=== PATIENT | female | born 1995 | race Caucasian/White ===

== ENCOUNTER 2017-05-24 20:22 | Emergency (ER) | payer SELFPAY ==
[~2017-05-24] VITALS: Ht 162.6 cm; Wt 70.3 kg
[~2017-05-24 20:22] MED LIST: AMPH30TA9 PO; CEP125L PO; CEPH-13 PO; CEPH500T7 PO; OMEP-125 PO; OXYC-865 PO; PHEN200T32 PO; SUCR1TAB51 PO; [UNRECOGNIZED DRUG - REMARK]
--- NOTE | 2017-05-24 20:46 | ER Report ---
History and Physical Time Seen By MD: 20:45 HPI/ROS CHIEF COMPLAINT: Burning epigastric region HISTORY OF PRESENT ILLNESS: 21-year-old female patient presents to emergency room with complaint of burning in the epigastric region. Patient states that this is been going on since yesterday. She states that is significantly worse with eating and drinking. She states that nothing seems to make the pain better. She states that she has taken some [id number] cough and cold medicine for a cold patient has. She states that has not helped with his burning in her chest. She denies having any fevers, chills, vomiting or diarrhea. Patient has been nauseated. Patient states that she is having significant amounts of pain and that was the reason for coming in tonight. REVIEW OF SYSTEMS: Respiratory: No cough, no dyspnea. Cardiovascular: No chest pain, no palpitations. Gastrointestinal: As noted above Musculoskeletal: No back pain. Allergies: Coded Allergies: No Known Drug Allergies (Verified , 05/24/17) Home Meds No Active Prescriptions or Reported Meds Past Medical/Surgical History Patient has a past medical history of miscarriage, frequent UTI. Patient has a surgical history of urethral surgery. Reviewed Nurses Notes: Yes Hx Smoking: Yes (1ppd) Smoking Status: Current: Every Day Smoker Hx Substance Use Disorder: No Hx Alcohol Use: No Constitutional Vital Sign - Last 24 Hours 05/24/17 05/24/17 20:35 22:42 Temp 98.3 98.3 Pulse 83 88 Resp 18 20 B/P (MAP) 107/60 126/79 (95) Pulse Ox 96 96 O2 Delivery Room Air Physical Exam General Appearance: The patient is alert, has no immediate need for airway protection and no current signs of toxicity. ENT: Tympanic membranes are pearly-garcia, auditory canals are patent, mucous membranes are moist. Respiratory: Chest is non tender, lungs are clear to auscultation. Cardiac: regular rate and rhythm Gastrointestinal: Abdomen is soft and tender in the epigastric region, no masses , bowel sounds normal. Musculoskeletal: Neck: Neck is supple and non tender. Extremities have full range of motion and are non tender. Skin: No rashes or lesions. DIFFERENTIAL DIAGNOSIS: After history and physical exam differential diagnosis was considered for abdominal pain including but not limited to appendicitis, cholecystitis, gastritis and urinary tract infection. Medical Decision Making Data Points Result Diagram: 05/24/17211805/24/172118 Laboratory Hematology Test 05/24/17 21:19 Red Blood Count 5.16 M/uL (4.17-5.56) Mean Corpuscular Volume 88.2 fL (80.0-96.0) Mean Corpuscular Hemoglobin 30.8 pg (26.0-33.0) Mean Corpuscular Hemoglobin Concent 34.9 g/dL (32.0-36.0) Red Cell Distribution Width 13.4 % (11.5-14.5) Mean Platelet Volume 7.2 fL (7.2-11.1) Neutrophils (%) (Auto) 45.5 % (39.4-72.5) Lymphocytes (%) (Auto) 39.8 % (17.6-49.6) Monocytes (%) (Auto) 12.2 % (4.1-12.4) Eosinophils (%) (Auto) 2.0 % (0.4-6.7) Basophils (%) (Auto) 0.5 % (0.3-1.4) Nucleated RBC Relative Count (auto) 0.0 /100WBC Neutrophils # (Auto) 2.1 K/uL (2.0-7.4) Lymphocytes # (Auto) 1.8 K/uL (1.3-3.6) Monocytes # (Auto) 0.6 K/uL (0.3-1.0) Eosinophils # (Auto) 0.1 K/uL (0.0-0.5) Basophils # (Auto) 0.0 K/uL (0.0-0.1) Nucleated RBC Absolute Count (auto) 0.00 K/uL Sodium Level 138 mmol/L (137-145) Potassium Level 3.4 mmol/L (3.5-5.0) Chloride Level 103 mmol/L (98-107) Carbon Dioxide Level 23 mmol/L (22-31) Blood Urea Nitrogen 8 mg/dl (7-18) Creatinine 0.60 mg/dl (0.52-1.04) Glomerular Filtration Rate Calc > 60.0 Random Glucose 83 mg/dl (75-110) Calcium Level 8.8 mg/dl (8.4-10.2) Total Bilirubin 0.2 mg/dl (0.2-1.3) Aspartate Amino Transf (AST/SGOT) 23 U/L (0-35) Alanine Aminotransferase (ALT/SGPT) 30 U/L (0-56) Alkaline Phosphatase 74 U/L (0-126) Total Protein 7.0 gm/dl (6.3-8.2) Albumin 3.9 g/dl (3.5-5.0) Amylase Level 54 U/L (0-110) Lipase 92 U/L (23-300) Human Chorionic Gonadotropin, Qual Positive (NEGATIVE) Chemistry Test 05/24/17 21:19 White Blood Count 4.6 k/uL (4.5-11.0) Red Blood Count 5.16 M/uL (4.17-5.56) Hemoglobin 15.9 g/dL (12.0-16.0) Hematocrit 45.5 % (34.0-47.0) Mean Corpuscular Volume 88.2 fL (80.0-96.0) Mean Corpuscular Hemoglobin 30.8 pg (26.0-33.0) Mean Corpuscular Hemoglobin Concent 34.9 g/dL (32.0-36.0) Red Cell Distribution Width 13.4 % (11.5-14.5) Platelet Count 180 K/uL (150-450) Mean Platelet Volume 7.2 fL (7.2-11.1) Neutrophils (%) (Auto) 45.5 % (39.4-72.5) Lymphocytes (%) (Auto) 39.8 % (17.6-49.6) Monocytes (%) (Auto) 12.2 % (4.1-12.4) Eosinophils (%) (Auto) 2.0 % (0.4-6.7) Basophils (%) (Auto) 0.5 % (0.3-1.4) Nucleated RBC Relative Count (auto) 0.0 /100WBC Neutrophils # (Auto) 2.1 K/uL (2.0-7.4) Lymphocytes # (Auto) 1.8 K/uL (1.3-3.6) Monocytes # (Auto) 0.6 K/uL (0.3-1.0) Eosinophils # (Auto) 0.1 K/uL (0.0-0.5) Basophils # (Auto) 0.0 K/uL (0.0-0.1) Nucleated RBC Absolute Count (auto) 0.00 K/uL Glomerular Filtration Rate Calc > 60.0 Calcium Level 8.8 mg/dl (8.4-10.2) Total Bilirubin 0.2 mg/dl (0.2-1.3) Aspartate Amino Transf (AST/SGOT) 23 U/L (0-35) Alanine Aminotransferase (ALT/SGPT) 30 U/L (0-56) Alkaline Phosphatase 74 U/L (0-126) Total Protein 7.0 gm/dl (6.3-8.2) Albumin 3.9 g/dl (3.5-5.0) Amylase Level 54 U/L (0-110) Lipase 92 U/L (23-300) Human Chorionic Gonadotropin, Qual Positive (NEGATIVE) ED Course/Re-evaluation ED Course Patient was admitted to an exam room, history of physical or obtained. Differential diagnoses were considered. On examination patient had epigastric abdominal pain. A CBC, CMP, amylase, lipase, hCG were done. I did order a acute abdominal x-ray. The labs were unremarkable except the patient did have a positive hCG. At that time I did cancel the x-ray. I discussed the findings with patient. We did treat her with a Magic mouthwash. She did have improvement in her chest pain. I believe that she is having gastritis secondary to being as well as possibly alcohol consumption last night. I discussed with the patient that she needs to follow-up with [facility], she is to call on Thursday to make appointment. Also discussed starting a vitamin. Patient verbalized understanding and agreement. Decision to Disposition Date: May 24, 2017 Decision to Disposition Time: 22:35 Depart Departure Latest Vital Signs Vital Signs Date Time Temp Pulse Resp B/P (MAP) Pulse Ox O2 Delivery O2 Flow Rate FiO2 05/24/17 22:42 98.3 88 20 126/79 (95) 96 05/24/17 20:35 Room Air Impression: Primary Impression: Additional Impression: Gastritis Condition: Improved Disposition: HOME OR SELF-CARE New Scripts No Active Prescriptions or Reported Meds Patient Instructions: First Trimester (ED) Additional Instructions: Increase fluid intake. Get plenty of rest. Follow up with [facility]. Return to the ER if condition worsens. Start taking Vitamin. Problem Qualifiers Primary Impression: Weeks of gestation: less than 8 weeks Qualified Codes: Z3A.01 - Less than 8 weeks gestation of Additional Impression: Gastritis Gastritis type: unspecified gastritis Chronicity: acute Gastritis bleeding : without bleeding Qualified Codes: K29.00 - Acute gastritis without bleeding VIKTOR HART May 24, 2017 20:46
[2017-05-24 21:27] LABS: PLATELET COUNT, AUTOMATED 180 K/uL (150-450)
[2017-05-24] MEDS ORDERED: MAG HYD/AL HYD/SIMETH 30ML UDC PO ONE (22:00)
[2017-05-24] MEDS ORDERED: LIDOCAINE 2% VISC SLN 15ML UDC PO ONE (22:00)
[2017-05-24 22:42] VITALS: BP 126/79
[2017-05-25] MEDS ORDERED: PRED20TA6 PO (15:12)
== END 2017-05-24 22:45 | disposition home or self-care (01) ==
LOC: ER 20:39
DX: K29.00 Acute gastritis without bleeding (principal); Z33.1 Pregnant state, incidental; Z3A.01 Less than 8 weeks gestation of pregnancy
CPT/HCPCS: 82040; 82150; 82247; 82310; 82374; 82435; 82565; 82947; 83690; 84075; 84132; 84155; 84295; 84450; 84460; 84520; 84703; 85025; 99284

== ENCOUNTER 2017-05-25 14:17 | Emergency (ER) | payer SELFPAY ==
--- NOTE | 2017-05-25 14:23 | ER Report ---
History and Physical Time Seen By MD: 14:22 HPI/ROS CHIEF COMPLAINT: Allergic reaction HISTORY OF PRESENT ILLNESS: 21-year-old female patient presents to emergency room with complaint of allergic reaction. Patient states that she was seen yesterday in the emergency room, she was given Maalox and viscous lidocaine which seem to help with the burning in her stomach which prompted her to go to the emergency room. She states she woke up this morning proximal point 5:00 the morning with hives. The hives have persisted. They're located mostly on the arms as well as the legs. Patient denies any fevers, chills, nausea, vomiting or diarrhea. She states that she did not have any Benadryl to take home and so she came into the emergency room for evaluation. Patient had a positive hCG last night. 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 Patient has surgical history of urethral surgery. Reviewed Nurses Notes: Yes Hx Smoking: Yes (1ppd) Smoking Status: Current: Every Day Smoker Hx Substance Use Disorder: No Hx Alcohol Use: No Constitutional Vital Sign - Last 24 Hours 05/25/17 05/25/17 05/25/17 05/25/17 14:23 14:24 14:32 14:33 Temp 98.3 Pulse 87 99 Resp 18 B/P (MAP) 113/69 (84) 113/69 111/64 (80) Pulse Ox 93 94 O2 Delivery Room Air 05/25/17 05/25/17 05/25/17 05/25/17 14:40 14:47 15:00 15:02 Pulse 100 92 B/P (MAP) 115/69 (84) 101/57 (72) Pulse Ox 96 96 05/25/17 05/25/17 05/25/17 05/25/17 15:17 15:20 15:25 15:30 Pulse 90 100 101 B/P (MAP) 99/54 (69) Pulse Ox 95 95 96 05/25/17 05/25/17 15:33 15:38 Pulse 91 B/P (MAP) 108/64 (79) Physical Exam General appearance: Alert no distress. Respiratory: Chest is non tender, lungs are clear to auscultation. Cardiac: Regular rate and rhythm Skin: Patient has hives located on bilateral upper and lower extremities, and no signs of excoriation. DIFFERENTIAL DIAGNOSIS: After history and physical exam differential diagnosis was considered for contact dermatitis, allergic reaction. Medical Decision Making ED Course/Re-evaluation ED Course Patient was admitted to exam room, history of physical or obtained. Differential diagnosis was considered. On examination patient does have hives on the arms as well is legs. Seems to worse around the elbows. Patient was given a dose of Benadryl, 25 mg. She states that seemed to help considerably with the itching, however there is still a fair amount of redness. As result of the redness we will go ahead and do a 5 day course of steroids. Patient was concerned that this could be related to the Maalox. I believe that is likely not the case due to the location of the hives, arms and legs. We will go ahead and discharge patient home. She is to increase fluid intake, she is to take Benadryl as needed for itching. She is to return to the emergency room if condition worsens. I discussed this with patient who verbalized understanding and agreement. Decision to Disposition Date: May 25, 2017 Decision to Disposition Time: 15:13 Depart Departure Latest Vital Signs Vital Signs Date Time Temp Pulse Resp B/P (MAP) Pulse Ox O2 Delivery O2 Flow Rate FiO2 05/25/17 15:38 108/64 (79) 05/25/17 15:33 91 05/25/17 15:30 96 05/25/17 14:24 98.3 18 Room Air Impression: Primary Impression: Allergic reaction Condition: Improved Disposition: HOME OR SELF-CARE New Scripts Prednisone (PREDNISONE) 20 Mg Tablet 20 MG PO BID, #8 TAB Prov: VIKTOR HART 05/25/17 Patient Instructions: General Allergic Reaction (ED) Additional Instructions: Get plenty of rest. Increase fluid intake. Get vitamin. Start taking the medication, Prednisone, tomorrow. Take Tylenol for any pain. Return to the ER if condition worsens. Problem Qualifiers Primary Impression: Allergic reaction Encounter type: initial encounter Qualified Codes: T78.40XA - Allergy, unspecified, initial encounter VIKTOR HART May 25, 2017 14:23
[2017-05-25] MEDS ORDERED: diphenhydrAMINE 25 MG CAP PO ONE (14:30)
[2017-05-25] MEDS ORDERED: PRED20TA6 PO (15:12)
[2017-05-25] MEDS ORDERED: predniSONE 20 MG TAB PO ONE (15:15)
[2017-05-25 15:38] VITALS: BP 108/64
== END 2017-05-25 15:40 | disposition home or self-care (01) ==
LOC: ER 14:41
DX: T78.40XA Allergy, unspecified, initial encounter (principal)
CPT/HCPCS: 99283; J7512; Q0163

== ENCOUNTER 2017-05-29 20:28 | Emergency (ER) | payer SELFPAY ==
[~2017-05-29] VITALS: Ht 154.9 cm; Wt 65.8 kg
[~2017-05-29 20:28] MED LIST changes: +PRED20TA6 PO
[2017-05-29 20:35] VITALS: BP 124/44
[2017-05-29] MEDS ORDERED: PREN-127 PO (20:39)
--- NOTE | 2017-05-29 20:46 | ER Report ---
History and Physical Time Seen By MD: 20:45 Hx. of Stated Complaint: PT HAVING LEFT SIDED CRAMPING PAIN WHILE . HPI/ROS CHIEF COMPLAINT: abdominal pain HISTORY OF PRESENT ILLNESS: This is a 21 year old female. She has left sided abdominal pain, lower abdomen, cramping in quality. Started yesterday. Nothing makes it worse or better. Having no vaginal bleeding. She is about 5 weeks . She is having slight vaginal discharge. Normal urination. Had some loose stool yesterday. No fevers or chills. No chest pain. No shortness of breath. Is getting over a cold with runny nose and cough. Allergies: Coded Allergies: No Known Drug Allergies (Verified , 05/29/17) Home Meds Reported Medications Vits W-Ca,Fe,Fa(<1MG) ( VITAMINS) 1 Each Tablet, 1 EACH PO DAILY, TAB 05/29/17 Discontinued Scripts Prednisone (PREDNISONE) 20 Mg Tablet, 20 MG PO BID, #8 TAB Prov:VIKTOR HART 05/25/17 Reviewed Nurses Notes: Yes Hx Smoking: Yes (1ppd) Smoking Status: Current: Every Day Smoker Hx Substance Use Disorder: No Hx Alcohol Use: No Constitutional Vital Sign - Last 24 Hours 05/29/17 05/29/17 05/29/17 05/29/17 20:33 20:35 20:58 21:03 Temp 98.9 Pulse 106 89 108 Resp 14 B/P (MAP) 124/44 124/44 (70) Pulse Ox 95 94 97 O2 Delivery Room Air 05/29/17 05/29/17 05/29/17 05/29/17 21:18 21:48 21:53 22:23 Pulse 96 96 105 101 Pulse Ox 94 89 96 100 05/29/17 05/29/17 22:38 22:53 Pulse 113 108 Pulse Ox 96 97 Physical Exam General Appearance: The patient is alert. No acute distress. Eyes: Pupils are equal, round. No pallor, injection or icterus. ENT: Mucous membranes are moist. Respiratory: Breathing easily and unlabored. Cardiovascular: Regular rate and rhythm. No edema. Gastrointestinal: Abdomen with pain in left side of abdomen with palpation. Nondistended. No rebound or guarding. Normal active bowel sounds. Neurological: Alert and oriented x3. Skin: Warm and dry. No rashes or lesions DIFFERENTIAL DIAGNOSIS: After history and physical exam, differential diagnosis was considered for abdominal pain on left side in a female with 5 week . Pelvic exam: The vulva was normal no lesions. The vagina had no bleeding and did have some thin discharge. The cervix was closed no bleeding and no purulent drainage. The uterus was normal size and non tender. The adnexa had no masses, but did have some tenderness on the left. The exam was performed with a pipe and test supervisor. Medical Decision Making Data Points Result Diagram: 05/29/17212005/29/172120 Laboratory Hematology Test 05/29/17 21:21 05/29/17 22:15 Red Blood Count 5.14 M/uL (4.17-5.56) Mean Corpuscular Volume 87.3 fL (80.0-96.0) Mean Corpuscular Hemoglobin 30.0 pg (26.0-33.0) Mean Corpuscular Hemoglobin Concent 34.4 g/dL (32.0-36.0) Red Cell Distribution Width 13.4 % (11.5-14.5) Mean Platelet Volume 6.7 fL (7.2-11.1) Neutrophils (%) (Auto) 60.4 % (39.4-72.5) Lymphocytes (%) (Auto) 31.6 % (17.6-49.6) Monocytes (%) (Auto) 5.5 % (4.1-12.4) Eosinophils (%) (Auto) 2.1 % (0.4-6.7) Basophils (%) (Auto) 0.4 % (0.3-1.4) Nucleated RBC Relative Count (auto) 0.1 /100WBC Neutrophils # (Auto) 6.7 K/uL (2.0-7.4) Lymphocytes # (Auto) 3.5 K/uL (1.3-3.6) Monocytes # (Auto) 0.6 K/uL (0.3-1.0) Eosinophils # (Auto) 0.2 K/uL (0.0-0.5) Basophils # (Auto) 0.0 K/uL (0.0-0.1) Nucleated RBC Absolute Count (auto) 0.01 K/uL Sodium Level 137 mmol/L (137-145) Potassium Level 3.4 mmol/L (3.5-5.0) Chloride Level 105 mmol/L (98-107) Carbon Dioxide Level 23 mmol/L (22-31) Blood Urea Nitrogen 10 mg/dl (7-18) Creatinine 0.70 mg/dl (0.52-1.04) Glomerular Filtration Rate Calc > 60.0 Random Glucose 78 mg/dl (75-110) Calcium Level 9.0 mg/dl (8.4-10.2) Total Bilirubin 0.3 mg/dl (0.2-1.3) Aspartate Amino Transf (AST/SGOT) 26 U/L (0-35) Alanine Aminotransferase (ALT/SGPT) 35 U/L (0-56) Alkaline Phosphatase 83 U/L (0-126) Total Protein 7.0 gm/dl (6.3-8.2) Albumin 3.8 g/dl (3.5-5.0) Human Chorionic Gonadotropin, Quant 7173 mIU/ml Urine Color Yellow Urine Clarity Slightly-cloudy Urine pH 7.0 pH (4.8-9.5) Urine Specific [place] 1.016 Urine Protein Negative mg/dL (NEGATIVE) Urine Glucose (UA) Negative mg/dL (NEGATIVE) Urine Ketones Negative mg/dL (NEGATIVE) Urine Blood Negative (NEGATIVE) Urine Nitrite Positive (NEGATIVE) Urine Bilirubin Negative (NEGATIVE) Urine Urobilinogen Negative mg/dL (0.2-1.9) Urine Leukocyte Esterase Trace (NEGATIVE) Urine RBC <1 /HPF (0-2/HPF) Urine WBC 13 /HPF (0-5/HPF) Urine Squamous Epithelial Cells Many /LPF (</=FEW) Urine Bacteria Many /HPF (NONE-FEW) Urine Mucus Few /HPF (NONE-FEW) Chemistry Test 05/29/17 21:21 05/29/17 22:15 White Blood Count 11.0 k/uL (4.5-11.0) Red Blood Count 5.14 M/uL (4.17-5.56) Hemoglobin 15.5 g/dL (12.0-16.0) Hematocrit 44.9 % (34.0-47.0) Mean Corpuscular Volume 87.3 fL (80.0-96.0) Mean Corpuscular Hemoglobin 30.0 pg (26.0-33.0) Mean Corpuscular Hemoglobin Concent 34.4 g/dL (32.0-36.0) Red Cell Distribution Width 13.4 % (11.5-14.5) Platelet Count 266 K/uL (150-450) Mean Platelet Volume 6.7 fL (7.2-11.1) Neutrophils (%) (Auto) 60.4 % (39.4-72.5) Lymphocytes (%) (Auto) 31.6 % (17.6-49.6) Monocytes (%) (Auto) 5.5 % (4.1-12.4) Eosinophils (%) (Auto) 2.1 % (0.4-6.7) Basophils (%) (Auto) 0.4 % (0.3-1.4) Nucleated RBC Relative Count (auto) 0.1 /100WBC Neutrophils # (Auto) 6.7 K/uL (2.0-7.4) Lymphocytes # (Auto) 3.5 K/uL (1.3-3.6) Monocytes # (Auto) 0.6 K/uL (0.3-1.0) Eosinophils # (Auto) 0.2 K/uL (0.0-0.5) Basophils # (Auto) 0.0 K/uL (0.0-0.1) Nucleated RBC Absolute Count (auto) 0.01 K/uL Glomerular Filtration Rate Calc > 60.0 Calcium Level 9.0 mg/dl (8.4-10.2) Total Bilirubin 0.3 mg/dl (0.2-1.3) Aspartate Amino Transf (AST/SGOT) 26 U/L (0-35) Alanine Aminotransferase (ALT/SGPT) 35 U/L (0-56) Alkaline Phosphatase 83 U/L (0-126) Total Protein 7.0 gm/dl (6.3-8.2) Albumin 3.8 g/dl (3.5-5.0) Human Chorionic Gonadotropin, Quant 7173 mIU/ml Urine Color Yellow Urine Clarity Slightly-cloudy Urine pH 7.0 pH (4.8-9.5) Urine Specific [place] 1.016 Urine Protein Negative mg/dL (NEGATIVE) Urine Glucose (UA) Negative mg/dL (NEGATIVE) Urine Ketones Negative mg/dL (NEGATIVE) Urine Blood Negative (NEGATIVE) Urine Nitrite Positive (NEGATIVE) Urine Bilirubin Negative (NEGATIVE) Urine Urobilinogen Negative mg/dL (0.2-1.9) Urine Leukocyte Esterase Trace (NEGATIVE) Urine RBC <1 /HPF (0-2/HPF) Urine WBC 13 /HPF (0-5/HPF) Urine Squamous Epithelial Cells Many /LPF (</=FEW) Urine Bacteria Many /HPF (NONE-FEW) Urine Mucus Few /HPF (NONE-FEW) Urinalysis Test 05/29/17 22:15 Urine Color Yellow Urine Clarity Slightly-cloudy Urine pH 7.0 pH (4.8-9.5) Urine Specific [place] 1.016 Urine Protein Negative mg/dL (NEGATIVE) Urine Glucose (UA) Negative mg/dL (NEGATIVE) Urine Ketones Negative mg/dL (NEGATIVE) Urine Blood Negative (NEGATIVE) Urine Nitrite Positive (NEGATIVE) Urine Bilirubin Negative (NEGATIVE) Urine Urobilinogen Negative mg/dL (0.2-1.9) Urine Leukocyte Esterase Trace (NEGATIVE) Urine RBC <1 /HPF (0-2/HPF) Urine WBC 13 /HPF (0-5/HPF) Urine Squamous Epithelial Cells Many /LPF (</=FEW) Urine Bacteria Many /HPF (NONE-FEW) Urine Mucus Few /HPF (NONE-FEW) Microbiology Microbiology Date/Time Source Procedure Growth Status 05/29/17 21:35 Vaginal Wet Prep - Final Complete EKG/Imaging Imaging EXAMINATION: FIRST TRIMESTER TRANSABDOMINAL AND TRANSVAGINAL ULTRASOUND WITH DOPPLER DATE: 05/29/2017 9:05 PM INDICATION: 5 weeks , abdominal pain/cramping. TECHNIQUE: Transabdominal and transvaginal grayscale, color, and pulsed Doppler examination of the uterus and adnexa was performed. COMPARISON: 03/03/2017. FINDINGS: LMP: 04/24/2017. Estimated gestational age by LMP: 5 weeks 0 days. Estimated date of delivery by LMP: 01/29/2018 The uterus is anteverted and anteflexed. There is a gestational sac in the fundal endometrial canal with a mean sac diameter of 0.79 cm consistent with a gestational age of 5 weeks 3 days. The gestational sac contains a yolk sac with no definite pole or heart movement. There is no evidence of subchorionic hemorrhage or myometrial abnormality. The right ovary measures 2.8 x 2.4 x 2.7 cm and demonstrates normal follicles and a potential corpus luteum as well as normal spectral waveform of the arterial blood flow. The left ovary measures 2.4 x 1.5 x 2.6 cm and demonstrates normal follicles and normal spectral waveform of the arterial blood flow. There is no free fluid or abnormal adnexal mass in the pelvic cavity. IMPRESSION: Single intrauterine gestational sac containing a yolk sac. Mean sac diameter is 5 weeks 3 days compared to estimated gestational age by LMP of 5 weeks 0 days, with estimated date of delivery by LMP of 01/29/2018. pole and heart rate not apparent at this time, likely due to early gestational age. Recommend follow-up imaging and beta hCGs as indicated. Report Dictated By: John Granados MD at 05/29/2017 10:39 PM ED Course/Re-evaluation Clinical Indication for ER IV: IV Access ED Course Labs unremarkable. Ultrasound consistent with dates. Urine culture ordered. Will use Tylenol as needed for pain and follow up with OB. Decision to Disposition Date: May 29, 2017 Decision to Disposition Time: 23:02 Depart Departure Latest Vital Signs Vital Signs Date Time Temp Pulse Resp B/P (MAP) Pulse Ox O2 Delivery O2 Flow Rate FiO2 05/29/17 22:53 108 97 05/29/17 20:35 124/44 (70) 05/29/17 20:33 98.9 14 Room Air Impression: Primary Impression: Abdominal cramping affecting Condition: Improved Disposition: HOME OR SELF-CARE Patient Instructions: Abdominal Pain (ED) Additional Instructions: We did not see any problems with you labs or with the ultrasound. Take Tylenol as needed for cramping and pain. Follow-up with your OB provider next week. EKATERINA JOHNSON MD May 29, 2017 20:46
[2017-05-29 21:33] LABS: PLATELET COUNT, AUTOMATED 266 K/uL (150-450)
--- NOTE | 2017-05-29 22:49 | RADIOLOGY IMAGING REPORT ---
FACILITY: [facility] PATIENT NAME: Aliya Rodriguez : 1995 MR: [id number] V: [id number] EXAM DATE: ORDERING PHYSICIAN: EKATERINA JOHNSON TECHNOLOGIST: Location: [facility] [place] Patient: Aliya Rodriguez : 1995 Visit/Account:[id number] Date of Sevice: 05/29/2017 EXAMINATION: FIRST TRIMESTER TRANSABDOMINAL AND TRANSVAGINAL ULTRASOUND WITH DOPPLER DATE: 05/29/2017 9:05 PM INDICATION: 5 weeks , abdominal pain/cramping. TECHNIQUE: Transabdominal and transvaginal grayscale, color, and pulsed Doppler examination of the ut erus and adnexa was performed. COMPARISON: 03/03/2017. FINDINGS: LMP: 04/24/2017. Estimated gestational age by LMP: 5 weeks 0 days. Estimated date of delivery by LMP: 01/29/2018 The uterus is anteverted and anteflexed. There is a gestational sac in the fundal endometrial canal with a mean sac diameter of 0.79 cm consistent with a gestational age of 5 weeks 3 days. The gestati onal sac contains a yolk sac with no definite pole or heart movement. There is no evidenc e of subchorionic hemorrhage or myometrial abnormality. The right ovary measures 2.8 x 2.4 x 2.7 cm and demonstrates normal follicles and a potential corpus luteum as well as normal spectral waveform of the arterial blood flow. The left ovary measures 2.4 x 1.5 x 2.6 cm and demonstrates normal follicles and normal spectral waveform of the arterial blood gaby w. There is no free fluid or abnormal adnexal mass in the pelvic cavity. IMPRESSION: Single intrauterine gestational sac containing a yolk sac. Mean sac diameter is 5 weeks 3 days compared to estimated gestational age by LMP of 5 weeks 0 days, with estimated date of delivery by LMP of 01/29/2018. pole and heart rate not apparent at this time, likely due to early gestati onal age. Recommend follow-up imaging and beta hCGs as indicated. Report Dictated By: John Granados MD at 05/29/2017 10:39 PM Report E-Signed By: John Granados MD at 05/29/2017 10:45 PM [id number]
== END 2017-05-29 23:34 | disposition home or self-care (01) ==
LOC: ER 20:39
DX: O26.891 Other specified pregnancy related conditions, first trimester (principal); B96.20 Unspecified Escherichia coli [E. coli] as the cause of diseases classified elsewhere; F17.210 Nicotine dependence, cigarettes, uncomplicated; Z3A.01 Less than 8 weeks gestation of pregnancy
CPT/HCPCS: 36415; 76817; 81001; 82040; 82247; 82310; 82374; 82435; 82565; 82947; 84075; 84132; 84155; 84295; 84450; 84460; 84520; 84702; 85025; 86900; 86901; 87077; 87088; 87186; 87210; 99283

== ENCOUNTER 2017-07-04 18:13 | Emergency (ER) | payer MEDICAID ==
[~2017-07-04] VITALS: Ht 154.9 cm; Wt 65.8 kg
[~2017-07-04 18:13] MED LIST changes: +PREN-127 PO
--- NOTE | 2017-07-04 18:25 | ER Report ---
History and Physical Time Seen By MD: 18:21 HPI/ROS CHIEF COMPLAINT: left abdominal and flank pain HISTORY OF PRESENT ILLNESS: This is a 21 year old female. She has sudden onset of left abdominal and flank pain while waiting in the [employer] thru. Pain was sharp. Now is mainly gone, maybe just a very little bit left. She is 11 weeks along in her second . Her first ended in miscarriage at about 11 weeks, so this has her a little nervous. She has no vaginal bleeding, vaginal discharge or leakage of fluid. No lower abdominal cramps. She has had no fevers or chills. Had a normal bowel movement just prior to coming to the hospital. Bowels moving did not worsen, improve or change the pain. No blood in the stool or melena. Normal urination without dysuria or frequency. REVIEW OF SYSTEMS: Respiratory: No cough, no dyspnea. Cardiovascular: No chest pain, no palpitations. Musculoskeletal: No back pain. No extremity pain. Allergies: Coded Allergies: No Known Drug Allergies (Verified , 07/04/17) Home Meds Reported Medications Vits W-Ca,Fe,Fa(<1MG) ( VITAMINS) 1 Each Tablet, 1 EACH PO DAILY, TAB 05/29/17 Reviewed Nurses Notes: Yes Hx Smoking: Yes (1ppd) Smoking Status: Current: Every Day Smoker Hx Substance Use Disorder: No Hx Alcohol Use: No Constitutional Vital Sign - Last 24 Hours 07/04/17 07/04/17 07/04/17 07/04/17 18:18 18:22 18:28 18:30 Temp 97.4 Pulse 94 93 Resp 16 B/P (MAP) 124/68 124/68 (86) 104/60 (75) Pulse Ox 96 95 O2 Delivery Room Air 07/04/17 07/04/17 07/04/17 07/04/17 18:43 18:58 19:00 19:13 Pulse 86 90 92 B/P (MAP) 98/58 (71) Pulse Ox 95 95 95 Physical Exam General Appearance: The patient is alert, Eyes: Pupils equal and round no injection. ENT: Moist mucous membranes. Respiratory: Lungs are clear to auscultation. Cardiac: regular rate and rhythm Gastrointestinal: Abdomen is soft, some discomfort left mid abdomen and slightly around to left CVA area, no masses, bowel sounds normal. Musculoskeletal: No rib tenderness. No back pain. Skin: No rashes or lesions. DIFFERENTIAL DIAGNOSIS: After history and physical exam differential diagnosis was considered for left flank pain, normal bowels, no problems reported with without vaginal bleeding or discharge, will check for urinary tract infection. Medical Decision Making Data Points Laboratory Hematology Test 07/04/17 18:23 Urine Color Yellow Urine Clarity Cloudy Urine pH 5.0 pH (4.8-9.5) Urine Specific [place] 1.025 Urine Protein Negative mg/dL (NEGATIVE) Urine Glucose (UA) Negative mg/dL (NEGATIVE) Urine Ketones Negative mg/dL (NEGATIVE) Urine Blood Negative (NEGATIVE) Urine Nitrite Negative (NEGATIVE) Urine Bilirubin Negative (NEGATIVE) Urine Urobilinogen 4.0 mg/dL (0.2-1.9) Urine Leukocyte Esterase Large (NEGATIVE) Urine RBC 1 /HPF (0-2/HPF) Urine WBC 25 /HPF (0-5/HPF) Urine WBC Clumps Few /HPF Urine Squamous Epithelial Cells Many /LPF (</=FEW) Urine Amorphous Crystals Few /HPF Urine Bacteria Few /HPF (NONE-FEW) Urine Mucus Few /HPF (NONE-FEW) Chemistry Test 07/04/17 18:23 Urine Color Yellow Urine Clarity Cloudy Urine pH 5.0 pH (4.8-9.5) Urine Specific [place] 1.025 Urine Protein Negative mg/dL (NEGATIVE) Urine Glucose (UA) Negative mg/dL (NEGATIVE) Urine Ketones Negative mg/dL (NEGATIVE) Urine Blood Negative (NEGATIVE) Urine Nitrite Negative (NEGATIVE) Urine Bilirubin Negative (NEGATIVE) Urine Urobilinogen 4.0 mg/dL (0.2-1.9) Urine Leukocyte Esterase Large (NEGATIVE) Urine RBC 1 /HPF (0-2/HPF) Urine WBC 25 /HPF (0-5/HPF) Urine WBC Clumps Few /HPF Urine Squamous Epithelial Cells Many /LPF (</=FEW) Urine Amorphous Crystals Few /HPF Urine Bacteria Few /HPF (NONE-FEW) Urine Mucus Few /HPF (NONE-FEW) Urinalysis Test 07/04/17 18:23 Urine Color Yellow Urine Clarity Cloudy Urine pH 5.0 pH (4.8-9.5) Urine Specific [place] 1.025 Urine Protein Negative mg/dL (NEGATIVE) Urine Glucose (UA) Negative mg/dL (NEGATIVE) Urine Ketones Negative mg/dL (NEGATIVE) Urine Blood Negative (NEGATIVE) Urine Nitrite Negative (NEGATIVE) Urine Bilirubin Negative (NEGATIVE) Urine Urobilinogen 4.0 mg/dL (0.2-1.9) Urine Leukocyte Esterase Large (NEGATIVE) Urine RBC 1 /HPF (0-2/HPF) Urine WBC 25 /HPF (0-5/HPF) Urine WBC Clumps Few /HPF Urine Squamous Epithelial Cells Many /LPF (</=FEW) Urine Amorphous Crystals Few /HPF Urine Bacteria Few /HPF (NONE-FEW) Urine Mucus Few /HPF (NONE-FEW) ED Course/Re-evaluation ED Course Urinalysis has changes present, but most likely contamination. Will obtain culture. In the meantime, recommended heating pad and Tylenol as needed and follow-up with OB as needed. Decision to Disposition Date: Jul 04, 2017 Decision to Disposition Time: 19:20 Depart Departure Latest Vital Signs Vital Signs Date Time Temp Pulse Resp B/P (MAP) Pulse Ox O2 Delivery O2 Flow Rate FiO2 07/04/17 19:13 92 95 07/04/17 19:00 98/58 (71) 07/04/17 18:18 97.4 16 Room Air Impression: Primary Impression: Left flank pain Condition: Improved Disposition: HOME OR SELF-CARE Patient Instructions: Flank Pain (ED) Additional Instructions: Follow-up with [employer] [facility]. Take Tylenol as needed for pain EKATERINA JOHNSON MD Jul 04, 2017 18:25
[2017-07-04 19:00] VITALS: BP 98/58
== END 2017-07-04 19:27 | disposition home or self-care (01) ==
LOC: ER 18:33
DX: R10.84 Generalized abdominal pain (principal)
CPT/HCPCS: 81001; 87077; 87088; 87186; 99283

== ENCOUNTER 2017-08-02 20:38 | Emergency (ER) | payer MEDICAID ==
--- NOTE | 2017-08-02 23:14 | ER Report ---
History and Physical Time Seen By MD: 23:13 HPI/ROS CHIEF COMPLAINT: right leg pain HISTORY OF PRESENT ILLNESS: This is a 21 year old female. She has been having a couple of days of knee pain. Diffuse throughout the knee. Started after traveling yesterday with prolonged driving. She was walking tonight and felt a pop sensation in her right knee. Pain worsened after this. Pain shooting up her leg. Normal sensation in the leg and foot. Worsens with walking. Says the pain shoots all the way up to her arm. REVIEW OF SYSTEMS: Respiratory: No cough, no dyspnea. Cardiovascular: No chest pain, no palpitations. Gastrointestinal: No vomiting, no abdominal pain. Musculoskeletal: No back pain. Allergies: Coded Allergies: No Known Drug Allergies (Verified , 08/02/17) Home Meds Reported Medications Vits W-Ca,Fe,Fa(<1MG) ( VITAMINS) 1 Each Tablet, 1 EACH PO DAILY, TAB 05/29/17 Reviewed Nurses Notes: Yes Hx Smoking: Yes (1ppd) Smoking Status: Current: Every Day Smoker Hx Substance Use Disorder: No Hx Alcohol Use: No Constitutional Vital Sign - Last 24 Hours 08/02/17 23:18 Temp 98.4 Pulse 89 Resp 18 B/P (MAP) 118/85 Pulse Ox 98 O2 Delivery Room Air Physical Exam General Appearance: The patient is alert, has no immediate need for airway protection and no current signs of toxicity. Eyes: Pupils equal and round no injection. ENT: Moist mucous membranes. Neck: Neck is supple and non tender. Respiratory: Breathing easily, clear. Cardiac: regular rate and rhythm Gastrointestinal: Abdomen is soft and non tender, no masses, bowel sounds normal. Heart tones reactive and normal. Musculoskeletal: Diffuse pain over the right knee. Some pain down in to the calf and up into medial thigh, but no swelling. Knee without ligamentous laxity and negative ney. Pain with passive and active range of motion. Some pain with palpation of the hamstring tendons bilaterally. No calf pain with palpation. No pain in the ankle or hip. Skin: No rashes or lesions. DIFFERENTIAL DIAGNOSIS: After history and physical exam differential diagnosis was considered for knee pain and some pain in leg. Will get knee x-ray and an ultrasound to rule out blood clots. Medical Decision Making EKG/Imaging Imaging KNEE 4 VIEW RIGHT Indication: Right knee/leg pain Comparison: None available Findings: 4 views right knee were obtained. No evidence of fracture, dislocation, or acute osseous abnormality of the right knee. The joint spaces are well-maintained. No evidence of joint effusion. There is no focal soft tissue abnormality. No evidence of radiopaque foreign body. IMPRESSION: 1.No acute osseous abnormality of the right knee Report Dictated By: Vladimir Gee MD at 08/03/2017 12:10 AM VENOUS DOPP LOW RIGHT EXTREMIT HISTORY: Knee and leg pain COMPARISON: None. FINDINGS: Grayscale, duplex and color Doppler interrogation of the right lower extremity deep veins from common femoral vein to proximal calf was completed. The greater saphenous vein in the proximal thigh was evaluated using similar technique. Common femoral vein - Negative. Femoral vein - Negative. Deep femoral vein - Negative. Popliteal vein - Negative. Visualized deep calf veins - Negative. Popliteal fossa: Negative. Greater saphenous vein in the proximal thigh: Negative. IMPRESSION: Negative exam. No DVT. Report Dictated By: Vladimir Gee MD at 08/03/2017 12:58 AM ED Course/Re-evaluation ED Course Nonspecific symptoms. Imaging as noted above negative. Patient had Tylenol for pain. Developed some hives on arms and neck. Gave Benadryl. Unsure if allergic reaction or Urticaria or . Decision to Disposition Date: Aug 03, 2017 Decision to Disposition Time: 00:54 Depart Departure Latest Vital Signs Vital Signs Date Time Temp Pulse Resp B/P (MAP) Pulse Ox O2 Delivery O2 Flow Rate FiO2 08/02/17 23:18 98.4 89 18 118/85 98 Room Air Impression: Primary Impression: Knee pain, right Additional Impression: Hives Condition: Improved Disposition: HOME OR SELF-CARE Patient Instructions: Musculoskeletal Pain (ED), Urticaria (ED) Additional Instructions: Tylenol as needed for pain. Gentle range of motion exercises. For the rash, you can use benadryl as needed. You can use over the counter hydrocortisone cream or benadryl cream. Problem Qualifiers Primary Impression: Knee pain, right Chronicity: acute Qualified Codes: M25.561 - Pain in right knee EKATERINA JOHNSON MD Aug 02, 2017 23:14
[2017-08-02 23:18] VITALS: BP 118/85
[2017-08-03] MEDS ORDERED: ACETAMINOPHEN 500 MG TAB PO ONE (00:10)
--- NOTE | 2017-08-03 00:16 | RADIOLOGY IMAGING REPORT ---
FACILITY: [facility] PATIENT NAME: Aliya Rodriguez : 1995 MR: [id number] V: [id number] EXAM DATE: ORDERING PHYSICIAN: EKATERINA JOHNSON TECHNOLOGIST: Location: [facility] [place] Patient: Aliya Rodriguez : 1995 Visit/Account:[id number] Date of Sevice: 08/02/2017 KNEE 4 VIEW RIGHT Indication: Right knee/leg pain Comparison: None available Findings: 4 views right knee were obtained. No evidence of fracture, dislocation, or acute osseous abnormality of the right knee. The joint spaces are well-maintained. No evidence of joint effusion. There is no focal soft tissue abnormality. No evidence of radiopaque foreign body. IMPRESSION: 1.No acute osseous abnormality of the right knee Report Dictated By: Vladimir Gee MD at 08/03/2017 12:10 AM Report E-Signed By: Vladimir Gee MD at 08/03/2017 12:11 AM WSN:[id number]
[2017-08-03] MEDS ORDERED: diphenhydrAMINE 50 MG/ML VIAL IVP ONE (00:40)
[2017-08-03] MEDS ORDERED: diphenhydrAMINE 25 MG CAP PO ONE (00:45)
--- NOTE | 2017-08-03 01:04 | RADIOLOGY IMAGING REPORT ---
FACILITY: [facility] PATIENT NAME: Aliya Rodriguez : 1995 MR: [id number] V: [id number] EXAM DATE: ORDERING PHYSICIAN: EKATERINA JOHNSON TECHNOLOGIST: Location: [facility] Patient: Aliya Rodriguez : 1995 Visit/Account:[id number] Date of Sevice: 08/03/2017 VENOUS DOPP LOW RIGHT EXTREMIT HISTORY: Knee and leg pain COMPARISON: None. FINDINGS: Grayscale, duplex and color Doppler interrogation of the right lower extremity deep veins from common femoral vein to proximal calf was completed. The greater saphenous vein in the proximal thigh was ev aluated using similar technique. Common femoral vein - Negative. Femoral vein - Negative. Deep femoral vein - Negative. Popliteal vein - Negative. Visualized deep calf veins - Negative. Popliteal fossa: Negative. Greater saphenous vein in the proximal thigh: Negative. IMPRESSION: Negative exam. No DVT. Report Dictated By: Vladimir Gee MD at 08/03/2017 12:58 AM Report E-Signed By: Vladimir Gee MD at 08/03/2017 12:59 AM WSN:[id number]
== END 2017-08-03 01:16 | disposition home or self-care (01) ==
LOC: ER 23:28
DX: M25.561 Pain in right knee (principal); L50.0 Allergic urticaria
CPT/HCPCS: 73564; 93971; 99283; Q0163

== ENCOUNTER 2017-09-04 13:41 | Emergency (ER) | payer OTHER, MEDICAID ==
[2017-09-04] MEDS ORDERED: ESCI20TA38 PO (13:50)
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
[2017-09-04] MEDS ORDERED: ACETAMINOPHEN 500 MG TAB PO ONE (14:20)
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
[2017-09-04 15:11] VITALS: BP 113/73
== END 2017-09-04 15:16 | disposition home or self-care (01) ==
LOC: ER 13:42
DX: O26.892 Other specified pregnancy related conditions, second trimester (principal); Z3A.18 18 weeks gestation of pregnancy
CPT/HCPCS: 81001; 99283